=== PATIENT | female | born 1930 | race Caucasian/White ===

== ENCOUNTER 2016-06-20 13:43 | Emergency (ER) | payer OTHER, BC ==
[~2016-06-20] VITALS: Ht 157.5 cm; Wt 49.3 kg
[~2016-06-20 13:43] MED LIST: BABY ASPIRIN81 M1 PO; PERCOCET 5/31 TABLET PO; SYNTHROID25 MCG PO; TYLENOL REGULA325 MG PO
[2016-06-20 14:37] LABS: MCH 26.4 PG (29.0-34.0); MCHC 33.2 G/DL (30.0-36.0); MCV 79.4 FL (83-99); MEAN PLAT.VOLUME 11.9 uM^3 (9.5-12.4); PLATELET COUNT 126 K/uL (156-360); RBC DIS.WIDTH-CV 14.4 % (11.8-14.6); RBC DIS.WIDTH-SD 40.9 % (39-53); RED BLOOD COUNT 4.28 M/uL (3.80-5.20); WHITE BLOOD COUNT 6.7 K/uL (4.1-10.2)
[2016-06-20 14:48] LABS: CHLORIDE 103 mEq/L (99-109); POTASSIUM 3.9 mEq/L (3.7-5.4); SODIUM 135 mEq/L (136-147)
[2016-06-20 14:50] LABS: GLUCOSE 92 mg/dL (70-99)
[2016-06-20 14:51] LABS: ANION GAP 11 MEQ/L (2-14)
[2016-06-20 14:53] LABS: GFR ESTIMATE (CALCULATED) > 59 mL/min/
[2016-06-20 14:54] LABS: UREA NITROGEN (BUN) 20 mg/dL (9-23)
[2016-06-20 14:58] LABS: TROP-I INTERPRETATION NEGATIVE; TROPONIN-I 0.02 ng/mL (0.0-0.30)
[2016-06-20] MEDS ORDERED: ROBITUSSIN AC,T10 ML PO (16:13)
[2016-06-20 16:34] VITALS: BP 153/66
== END 2016-06-20 16:55 | disposition home or self-care (01) ==
LOC: EME 13:43
PROVIDERS: Emergency Medicine
DX: J10.1 Influenza due to other identified influenza virus with other respiratory manifestations (principal); E78.5 Hyperlipidemia, unspecified; I10 Essential (primary) hypertension; I25.2 Old myocardial infarction; Z95.5 Presence of coronary angioplasty implant and graft
CPT/HCPCS: 80048; 84484; 85027; 93005; 99281; 99284

== ENCOUNTER 2017-08-10 12:18 | Emergency (ER) | payer OTHER, BC ==
[~2017-08-10] VITALS: Ht 157.5 cm; Wt 49.7 kg
[~2017-08-10 12:18] MED LIST changes: +ROBITUSSIN AC,T10 ML PO
[2017-08-10 13:10] LABS: HEMATOCRIT 34.8 % (36.0-46.0); HEMOGLOBIN 11.6 G/DL (11.9-15.5); MCH 27.5 PG (29.0-34.0); MCHC 33.3 G/DL (30.0-36.0); MCV 82.5 FL (83-99); PLATELET COUNT 162 K/uL (156-360); RBC DIS.WIDTH-CV 13.9 % (11.8-14.6); RBC DIS.WIDTH-SD 41.8 % (39-53); RED BLOOD COUNT 4.22 M/uL (3.80-5.20); WHITE BLOOD COUNT 12.5 K/uL (4.1-10.2)
[2017-08-10 13:21] LABS: CHLORIDE 107 mEq/L (99-109); POTASSIUM 4.6 mEq/L (3.7-5.4); SODIUM 140 mEq/L (136-147)
[2017-08-10 13:22] LABS: GLUCOSE 119 mg/dL (70-99)
[2017-08-10 13:26] LABS: CREATININE 0.8 mg/dL (0.6-1.3); GFR ESTIMATE (CALCULATED) > 59 mL/min/
[2017-08-10 13:27] LABS: UREA NITROGEN (BUN) 19 mg/dL (9-23)
[2017-08-10] MEDS ORDERED: ULTRAM50 MG PO (16:41)
[2017-08-10 17:05] VITALS: BP 120/88
== END 2017-08-10 17:06 | disposition home or self-care (01) ==
LOC: EME 12:18
PROVIDERS: Nurse Practitioner Family
DX: S42.202A Unspecified fracture of upper end of left humerus, initial encounter for closed fracture (principal); M85.80 Other specified disorders of bone density and structure, unspecified site; S09.90XA Unspecified injury of head, initial encounter; J90 Pleural effusion, not elsewhere classified; W10.9XXA Fall (on) (from) unspecified stairs and steps, initial encounter; I10 Essential (primary) hypertension; E78.5 Hyperlipidemia, unspecified; I25.2 Old myocardial infarction; Z95.5 Presence of coronary angioplasty implant and graft; Z85.828 Personal history of other malignant neoplasm of skin; Z79.82 Long term (current) use of aspirin
CPT/HCPCS: 70450; 71250; 72125; 73030; 73060; 80048; 85027; 93005; 99281; 99283; G8978 GP CJ; G8979 GP CI; G8980 CJ; G8987 GO CM; G8988 GO CL; G8989 GO CM